=== PATIENT | male | born 1960 | race Hispanic/Latino ===

== ENCOUNTER 2024-02-14 12:46 | Inpatient (IN) | payer MEDICARE, SELFPAY ==
[~2024-02-14 12:46] MED LIST: Iopamidol-370 76% 500 ML MDV (1 ML CHARGE) ONE
[2024-02-14] MEDS ORDERED: Ondansetron PF 4 MG/2 ML Vial ONE (12:55)
[2024-02-14] MEDS ORDERED: fentaNYL 50 mcg/mL 1 mL Vial ONE (12:57)
[2024-02-14 13:10] LABS: #Basophils 0.03 10x3/uL (0.0-0.2); %Basophils 0.2 % (0.0-1.0); %Eosinophils 1.2 % (0.0-10.0); %Monocytes 8.5 % (0.0-10.0); %Neutrophils 84.5 % (42.0-75.0); Hematocrit 36.6 % (42.0-52.0); Mean Corpuscular HGB CONC 30.1 g/dL (32.0-36.0); Mean Corpuscular Hemoglobin 25.8 pg (27.0-31.0); Mean Corpuscular Volume 85.7 fL (78.0-98.0); Mean Platelet Volume 9.6 fL (7.4-10.4); Platelet Count 234 10x3/uL (130-400); RBC Distribution Width 17.9 % (11.5-14.5); Red Blood Cell (RBC) Count 4.27 mill/uL (4.70-6.10)
[2024-02-14] MEDS ORDERED: EPINEPHrine 1 MG/10 ML Abboject SYRINGE ONE (13:19)
[2024-02-14] MEDS ORDERED: Rocuronium Bromide 10 MG/ML (10ML VIAL) ONE (13:21)
[2024-02-14] MEDS ORDERED: Etomidate 40 MG (20 mL) VIAL ONE (13:21)
[2024-02-14] MEDS ORDERED: NOREPINEPHRINE 8 MG/250 ML-D5W 250 ML ONE (13:27)
[2024-02-14 13:29] LABS: INR-International Normal Ratio 1.2; Prothrombin Time 15.2 sec (12.0-14.7)
[2024-02-14 13:30] LABS: PTT 36.6 sec (22.9-36.1)
[2024-02-14 13:37] LABS: ALT (SGPT) 12 U/L (8-55); AST (SGOT) 23 U/L (5-34); Albumin 2.5 g/dL (3.4-4.8); Alkaline Phosphatase 93 U/L (40-110); Anion Gap 19 mmol/L (10-20); BUN (Urea Nitrogen) 60 mg/dL (8.4-25.7); Bilirubin, Total 0.6 mg/dL (0.2-1.2); Calc. Creatinine Clearance 0 mL/min (70-130); Calcium 7.9 mg/dL (7.8-10.44); Carbon Dioxide 19 mmol/L (23-31); Chloride 99 mmol/L (98-107); Estimated GFR 11; Globulin 3.7 g/dL (2.4-3.5); Glucose 135 mg/dL (80-115); Lipase 7 U/L (8-78); Potassium 3.7 mmol/L (3.5-5.1); Protein, Total 6.2 g/dL (5.8-8.1); Sodium 133 mmol/L (136-145)
[2024-02-14 13:39] LABS: Troponin I 5.268 ng/mL (< 0.028)
[2024-02-14] MEDS ORDERED: Fentanyl CADD 100 ML IV SCH (13:45)
[2024-02-14 14:01] LABS: Actual Bicarbonate (HCO3a) 19.9 mEq/L (22-28); Base Excess (BEa) -5.7 mEq/L (-2.0 to +3.0); CO2 Tension 39.2 mmHg (35.0-45.0); Calcium, Ionized (arterial) 0.98 mmol/L (1.12-1.30); Carboxyhemoglobin (COHb) 1.1 gm% (0.0-3.0); Hematocrit-ABG 38 % (42.0-52.0); Hemoglobin (Hb) 12.8 g/dL (14.0-18.0); O2 Tension (PaO2), arterial 336.4 mmHg (> 80.0); Potassium - ABG Lab 3.43 mmol/L (3.70-5.30); pH, Arterial 7.323 (7.35-7.45)
[2024-02-14 14:04] LABS: Puncture Site Right Radial artery
[2024-02-14 15:00] LABS: Bilirubin Negative (Negative); Blood, Urine Negative (Negative); CAUTI Indications for Culture Dysuria,urgency,freq; Glucose, Urine (Dipstick) Normal (Negative); Ketone, Urine Negative (Negative); Nitrite Negative (Negative); Protein, Urine (Dipstick) 30 mg/dL (Neg-Trace); Specific Gravity, Urine 1.015 (1.002-1.036); Squamous Epithelial 0-3 HPF (0-3)
[2024-02-14] MEDS ORDERED: cefTRIAXone (ROCEPHIN) 2 GM VIAL ONE (15:12)
[2024-02-14 15:13] LABS: Clarity Cloudy (Clear)
[2024-02-14] MEDS ORDERED: Sodium Chloride 0.9% 100 ML ONE ×2 (15:13→16:30)
[2024-02-14 15:14] LABS: Leukocyte Trace (Negative)
[2024-02-14 15:15] LABS: Urobilinogen Normal mg/dL (Less than 2)
[2024-02-14] MEDS ORDERED: Pantoprazole 80 MG, Admixture Fee 1 EACH in Sodium Chloride 0.9% 100 ML IVPB SCH (15:15)
[2024-02-14] MEDS ORDERED: Octreotide Acetate 1,250 MCG in Sodium Chloride 0.9% 250 ML 250 ML IVPB SCH (15:15)
[2024-02-14 15:25] LABS: Bacteria/HPF 1+ HPF (None Seen); Calcium Oxalate Crystals 1+ HPF (None Seen)
[2024-02-14 15:28] LABS: Urine Culture Reflex No No
[2024-02-14] MEDS ORDERED: Pantoprazole 40 MG VIAL ONE ×2 (16:17→16:20)
[2024-02-14] MEDS ORDERED: Octreotide Acetate 500 MCG/ML VIAL ONE (16:17)
[2024-02-14 16:25] LABS: Phosphorus 5.3 mg/dL (2.3-4.7)
[2024-02-14] MEDS ORDERED: Cefepime 2 GM VIAL ONE (16:30)
[2024-02-14] MEDS: Propofol 1,000 MG/100 ML VIAL IV PRN (18:00)
[2024-02-14] MEDS: Lorazepam 2 MG/ML VIAL SLOW IVP PRN (18:20)
[2024-02-14] MEDS ORDERED: Propofol BOLUS 1,000 MG/100 ML VIAL IV PRN (18:30)
[2024-02-14] MEDS ORDERED: Fentanyl BOLUS 250 ML IVPB PRN (18:30)
[2024-02-14] MEDS ORDERED: DISCONTINUE PREVIOUS NARCOTIC PAIN MEDICATIONS AND BENZODIAZEPINES FS SCH (18:30)
[2024-02-14] MEDS ORDERED: Morphine 2 MG/ML VIAL SLOW IVP PRN (18:30)
[2024-02-14] MEDS: Ipratropium/Albuterol 3 ML NEB NEB SCH (18:36)
[2024-02-14 18:39] LABS: Lactic Acid 2.55 mmol/L (0.5-2.2)
[2024-02-14 18:51] LABS: #Basophils 0.03 10x3/uL (0.0-0.2); %Basophils 0.2 % (0.0-1.0); %Eosinophils 1.2 % (0.0-10.0); %Lymphocytes 10.4 % (21.0-51.0); %Monocytes 10.2 % (0.0-10.0); %Neutrophils 77.5 % (42.0-75.0); Hematocrit 43.6 % (42.0-52.0); Hemoglobin 13.7 g/dL (14.0-18.0); Mean Corpuscular HGB CONC 31.4 g/dL (32.0-36.0); Mean Corpuscular Hemoglobin 25.8 pg (27.0-31.0); Mean Corpuscular Volume 82.3 fL (78.0-98.0); Platelet Count 122 10x3/uL (130-400); RBC Distribution Width 17.6 % (11.5-14.5)
[2024-02-14 19:02] LABS: Bacteria/HPF None Seen HPF (None Seen); Bilirubin Negative (Negative); Blood, Urine 1+ (Negative); Clarity Clear (Clear); Glucose, Urine (Dipstick) Normal (Negative); Ketone, Urine Negative (Negative); Leukocyte Negative Leu/uL (Negative); Nitrite Negative (Negative); Protein, Urine (Dipstick) 30 mg/dL (Neg-Trace); Specific Gravity, Urine 1.038 (1.002-1.036); Squamous Epithelial 0-3 HPF (0-3); Urobilinogen Normal mg/dL (Less than 2); pH, Urine 5.5 (5.0-9.0)
[2024-02-14 19:06] LABS: Amphetamine Not Detected (NotDetected); Barbiturates Screen Not Detected (NotDetected); Benzodiazepine Screen Not Detected (NotDetected); Cocaine Metabolite Screen Not Detected (NotDetected); Methadone Not Detected (NotDetected); Methamphetamine Not Detected (NotDetected); Opiate Screen Not Detected (NotDetected); Oxycodone Screen Detected (NotDetected); Phencyclidine (PCP) Not Detected (NotDetected); THC/Cannabinoid Screen Not Detected (NotDetected); Tricyclic Screen Detected (NotDetected)
[2024-02-14 19:08] LABS: ALT (SGPT) 19 U/L (8-55); AST (SGOT) 41 U/L (5-34); Albumin 2.8 g/dL (3.4-4.8); Alkaline Phosphatase 124 U/L (40-110); Anion Gap 21 mmol/L (10-20); BUN (Urea Nitrogen) 56 mg/dL (8.4-25.7); Bilirubin, Direct 1.1 mg/dL (0.1-0.3); Bilirubin, Total 1.8 mg/dL (0.2-1.2); Calc. Creatinine Clearance 22 mL/min (70-130); Calcium 7.9 mg/dL (7.8-10.44); Carbon Dioxide 15 mmol/L (23-31); Chloride 101 mmol/L (98-107); Estimated GFR 14; Glucose 163 mg/dL (80-115); Phosphorus 4.9 mg/dL (2.3-4.7); Potassium 3.6 mmol/L (3.5-5.1); Protein, Total 6.8 g/dL (5.8-8.1); Sodium 133 mmol/L (136-145)
[2024-02-14] MEDS: Propofol 1,000 MG/100 ML VIAL IV ONE (19:10)
[2024-02-14] MEDS: Lorazepam 2 MG/ML VIAL ONE (19:10)
[2024-02-14 19:13] VITALS: BMI 38.5
[2024-02-14 19:14] LABS: Critical Call Chem Troponin I RESULT DECREASING; Troponin I 4.684 ng/mL (< 0.028)
[2024-02-14 19:21] LABS: Creatinine, Urine 158.62 mg/dL (63-166)
[2024-02-14] MEDS: Vancomycin (BATCH) 2 GM in Premix 1 BAG IVPB SCH (19:45)
[2024-02-14] MEDS ORDERED: Vancomycin 1 GM in Premix 1 BAG IVPB SCH (21:00)
[2024-02-15] MEDS: Sodium Chloride 0.9% 1,000 ML IV SCH (01:11)
[2024-02-15 04:57] LABS: Vancomycin, Random 31.5 ug/mL (See Comment)
[2024-02-15] MEDS: Albumin 25% 25 GM (100 mL) BOT IVPB SCH (06:50)
[2024-02-15 08:13] LABS: #Basophils 0.04 10x3/uL (0.0-0.2); %Basophils 0.3 % (0.0-1.0); %Eosinophils 1.5 % (0.0-10.0); %Lymphocytes 4.4 % (21.0-51.0); %Monocytes 12.1 % (0.0-10.0); %Neutrophils 80.8 % (42.0-75.0); Hematocrit 42.2 % (42.0-52.0); Hemoglobin 13.2 g/dL (14.0-18.0); Mean Corpuscular HGB CONC 31.3 g/dL (32.0-36.0); Mean Corpuscular Hemoglobin 25.9 pg (27.0-31.0); Mean Corpuscular Volume 82.7 fL (78.0-98.0); Mean Platelet Volume 10.5 fL (7.4-10.4); Platelet Count 231 10x3/uL (130-400); RBC Distribution Width 18.2 % (11.5-14.5)
[2024-02-15 08:31] LABS: Anion Gap 19 mmol/L (10-20); BUN (Urea Nitrogen) 54 mg/dL (8.4-25.7); Calc. Creatinine Clearance 29 mL/min (70-130); Calcium 8.2 mg/dL (7.8-10.44); Carbon Dioxide 19 mmol/L (23-31); Chloride 102 mmol/L (98-107); Estimated GFR 20; Glucose 157 mg/dL (80-115); Potassium 3.6 mmol/L (3.5-5.1); Sodium 136 mmol/L (136-145)
[2024-02-15] MEDS ORDERED: Ondansetron ODT 4 MG TAB PO PRN (09:49)
[2024-02-15] MEDS ORDERED: Lorazepam 2 MG/ML VIAL IM PRN (09:49)
[2024-02-15] MEDS ORDERED: Lorazepam 1 MG TAB PO PRN (09:49)
[2024-02-15] MEDS ORDERED: Acetaminophen 325 MG TAB PO PRN (09:51)
[2024-02-15] MEDS ORDERED: Electrolyte Replacement Protocol 1 EACH FS SCH (10:00)
[2024-02-15 10:14] LABS: #Basophils 0.06 10x3/uL (0.0-0.2); %Basophils 0.4 % (0.0-1.0); %Eosinophils 1.9 % (0.0-10.0); %Lymphocytes 4.5 % (21.0-51.0); %Monocytes 14.1 % (0.0-10.0); %Neutrophils 78.5 % (42.0-75.0); Hematocrit 39.5 % (42.0-52.0); Hemoglobin 12.5 g/dL (14.0-18.0); Mean Corpuscular HGB CONC 31.6 g/dL (32.0-36.0); Mean Corpuscular Hemoglobin 25.9 pg (27.0-31.0); Mean Corpuscular Volume 81.8 fL (78.0-98.0); Mean Platelet Volume 9.4 fL (7.4-10.4); Platelet Count 199 10x3/uL (130-400); RBC Distribution Width 18.3 % (11.5-14.5); Red Blood Cell (RBC) Count 4.83 mill/uL (4.70-6.10)
[2024-02-15] MEDS: Thiamine HCl 200 MG/2 ML VIAL SLOW IVP SCH (10:22)
[2024-02-15] MEDS: Folic Acid 1 MG TAB PO SCH (10:23)
[2024-02-15] MEDS: Multivit, Therapeutic 1 TAB PO SCH (10:23)
[2024-02-15] MEDS: Lorazepam 1 MG TAB PO SCH (10:23)
[2024-02-15 10:45] LABS: ALT (SGPT) 15 U/L (8-55); AST (SGOT) 26 U/L (5-34); Albumin 2.8 g/dL (3.4-4.8); Alkaline Phosphatase 107 U/L (40-110); Anion Gap 15 mmol/L (10-20); BUN (Urea Nitrogen) 49 mg/dL (8.4-25.7); Bilirubin, Direct 0.7 mg/dL (0.1-0.3); Calc. Creatinine Clearance 33 mL/min (70-130); Calcium 8.3 mg/dL (7.8-10.44); Carbon Dioxide 20 mmol/L (23-31); Chloride 106 mmol/L (98-107); Estimated GFR 23; Globulin 3.4 g/dL (2.4-3.5); Glucose 153 mg/dL (80-115); Phosphorus 3.9 mg/dL (2.3-4.7); Potassium 3.8 mmol/L (3.5-5.1); Protein, Total 6.2 g/dL (5.8-8.1); Sodium 137 mmol/L (136-145)
[2024-02-15] MEDS ORDERED: Vancomycin Dose by Levels Sliding Scale (Wt 71-99) FS SCH (11:00)
[2024-02-15] MEDS: Cefepime 1 GM in Sodium Chloride 0.9% 100 ML IVPB SCH (11:35)
[2024-02-15 14:43] LABS: Phosphorus 3.7 mg/dL (2.3-4.7)
[2024-02-15] MEDS ORDERED: Cefepime 2 GM in Sodium Chloride 0.9% 100 ML IVPB SCH (16:00)
[2024-02-15] MEDS ORDERED: Vancomycin HCl 500 MG in Sodium Chloride 0.9% 100 ML IVPB SCH (18:00)
[2024-02-15 18:12] LABS: Vancomycin, Trough 16.7 ug/mL
[2024-02-15] MEDS: Vancomycin HCl 500 MG in Sodium Chloride 0.9% 100 ML IV SCH (19:40)
[2024-02-15] MEDS: Magnesium 2 GM/50 ML(in water) 2 GM in Premix 1 BAG IVPB SCH (23:27)
[2024-02-16] MEDS: Vecuronium 10 MG VIAL ONE (00:49)
[2024-02-16] MEDS: Vecuronium 10 MG VIAL IVP SCH (00:49)
[2024-02-16 03:48] LABS: Vancomycin, Random 21.7 ug/mL (See Comment)
[2024-02-16 03:56] LABS: Troponin I 2.977 ng/mL (< 0.028)
[2024-02-16 08:35] LABS: #Basophils 0.09 10x3/uL (0.0-0.2); %Basophils 0.4 % (0.0-1.0); %Eosinophils 2.9 % (0.0-10.0); %Lymphocytes 5.6 % (21.0-51.0); %Monocytes 15.4 % (0.0-10.0); %Neutrophils 75.1 % (42.0-75.0); Hematocrit 43.5 % (42.0-52.0); Hemoglobin 12.7 g/dL (14.0-18.0); Mean Corpuscular HGB CONC 29.2 g/dL (32.0-36.0); Mean Corpuscular Hemoglobin 26.1 pg (27.0-31.0); Mean Corpuscular Volume 89.5 fL (78.0-98.0); Mean Platelet Volume 9.5 fL (7.4-10.4); Platelet Count 199 10x3/uL (130-400); RBC Distribution Width 19.1 % (11.5-14.5); Red Blood Cell (RBC) Count 4.86 mill/uL (4.70-6.10)
[2024-02-16 08:56] LABS: Anion Gap 14 mmol/L (10-20); BUN (Urea Nitrogen) 45 mg/dL (8.4-25.7); Calc. Creatinine Clearance 43 mL/min (70-130); Carbon Dioxide 22 mmol/L (23-31); Chloride 106 mmol/L (98-107); Estimated GFR 30; Glucose 109 mg/dL (80-115); Potassium 3.7 mmol/L (3.5-5.1); Sodium 138 mmol/L (136-145)
[2024-02-16] MEDS: Metoprolol Tartrate 25 MG TAB PER TUBE SCH (09:36)
[2024-02-16] MEDS: Pantoprazole 40 MG VIAL IVP SCH (09:36)
[2024-02-16] MEDS: Multivit, Therapeutic 1 TAB PO SCH (09:37)
[2024-02-16] MEDS: Folic Acid 1 MG TAB PO SCH (09:37)
[2024-02-16] MEDS ORDERED: Lorazepam 1 MG TAB PO PRN (09:50)
[2024-02-16] MEDS: NOREPINEPHRINE 8 MG/250 ML-D5W 250 ML IVPB SCH (14:11)
[2024-02-16] MEDS: Fentanyl CADD 100 ML IV SCH (14:18)
[2024-02-16] MEDS: Lactated Ringer's 500 ML IV SCH (15:33)
[2024-02-16] MEDS: methylPREDNISolone Sod Succ 40 MG VIAL IVP SCH (19:52)
[2024-02-17] MEDS: Dexmedetomidine In 0.9 % NaCl 100 ML IVPB SCH (01:51)
[2024-02-17 05:40] LABS: Vancomycin, Random 13.9 ug/mL (See Comment)
[2024-02-17 08:02] LABS: Actual Bicarbonate (HCO3a) 17.4 mEq/L (22-28); Base Excess (BEa) -11.4 mEq/L (-2.0 to +3.0); CO2 Tension 50.5 mmHg (35.0-45.0); Calcium, Ionized (arterial) 1.27 mmol/L (1.12-1.30); Hematocrit-ABG 41 % (42.0-52.0); Hemoglobin (Hb) 13.9 g/dL (14.0-18.0); O2 Tension (PaO2), arterial 74.4 mmHg (> 80.0); Potassium - ABG Lab 4.94 mmol/L (3.70-5.30)
[2024-02-17 08:10] LABS: Puncture Site Left Brachial artery; pH, Arterial 7.155 (7.35-7.45)
[2024-02-17 08:11] LABS: ALV-art Gradient 218.975 mmHg (0-20)
[2024-02-17 08:46] LABS: Anion Gap 18 mmol/L (10-20); BUN (Urea Nitrogen) 59 mg/dL (8.4-25.7); Calc. Creatinine Clearance 35 mL/min (70-130); Carbon Dioxide 17 mmol/L (23-31); Chloride 109 mmol/L (98-107); Estimated GFR 23; Glucose 162 mg/dL (80-115); Potassium 5.3 mmol/L (3.5-5.1); Sodium 139 mmol/L (136-145)
[2024-02-17 08:53] LABS: #Basophils 0.05 10x3/uL (0.0-0.2); #Eosinophils Less than 0.03 10x3/uL (0.0-0.7); %Basophils 0.3 % (0.0-1.0); %Eosinophils 0.1 % (0.0-10.0); %Lymphocytes 5.7 % (21.0-51.0); %Monocytes 7.5 % (0.0-10.0); %Neutrophils 85.5 % (42.0-75.0); Hematocrit 45.7 % (42.0-52.0); Hemoglobin 13.6 g/dL (14.0-18.0); Mean Corpuscular HGB CONC 29.8 g/dL (32.0-36.0); Mean Corpuscular Hemoglobin 25.9 pg (27.0-31.0); Platelet Count 220 10x3/uL (130-400); RBC Distribution Width 19.5 % (11.5-14.5); Red Blood Cell (RBC) Count 5.25 mill/uL (4.70-6.10)
[2024-02-17] MEDS ORDERED: Sodium Bicarbonate 150 MEQ in Dextrose 5% in Water 1,000 ML IV SCH (09:15)
[2024-02-17] MEDS: Vancomycin HCl 750 MG in Sodium Chloride 0.9% 250 ML 250 ML IVPB SCH (09:48)
[2024-02-17] MEDS ORDERED: Lorazepam 1 MG TAB PO PRN (09:50)
[2024-02-17] MEDS: Lorazepam 0.5 MG TAB PO SCH (10:19)
[2024-02-17] MEDS: Sodium Bicarbonate 150 MEQ in Dextrose 5% in Water 1,000 ML IV SCH (10:53)
[2024-02-17] MEDS: LOKELMA 10 GM PACKET PO SCH (10:53)
[2024-02-17] MEDS ORDERED: Vancomycin HCl 750 MG in Sodium Chloride 0.9% 250 ML 250 ML IVPB SCH (11:00)
[2024-02-17 18:53] LABS: Anion Gap 20 mmol/L (10-20); BUN (Urea Nitrogen) 67 mg/dL (8.4-25.7); Calc. Creatinine Clearance 34 mL/min (70-130); Calcium 8.6 mg/dL (7.8-10.44); Carbon Dioxide 15 mmol/L (23-31); Chloride 110 mmol/L (98-107); Estimated GFR 22; Glucose 168 mg/dL (80-115); Sodium 140 mmol/L (136-145)
[2024-02-18] MEDS: Thiamine 100 MG TAB PO SCH (07:43)
[2024-02-18 08:32] LABS: #Basophils Less than 0.03 10x3/uL (0.0-0.2); #Eosinophils Less than 0.03 10x3/uL (0.0-0.7); %Basophils 0.2 % (0.0-1.0); %Lymphocytes 6.9 % (21.0-51.0); %Monocytes 11.8 % (0.0-10.0); %Neutrophils 78.9 % (42.0-75.0); Hematocrit 43.7 % (42.0-52.0); Hemoglobin 13.4 g/dL (14.0-18.0); Mean Corpuscular HGB CONC 30.7 g/dL (32.0-36.0); Mean Corpuscular Hemoglobin 25.9 pg (27.0-31.0); Mean Corpuscular Volume 84.4 fL (78.0-98.0); Mean Platelet Volume 9.6 fL (7.4-10.4); Platelet Count 234 10x3/uL (130-400); RBC Distribution Width 18.9 % (11.5-14.5); Red Blood Cell (RBC) Count 5.18 mill/uL (4.70-6.10)
[2024-02-18 09:06] LABS: Anion Gap 18 mmol/L (10-20); BUN (Urea Nitrogen) 81 mg/dL (8.4-25.7); Calc. Creatinine Clearance 33 mL/min (70-130); Calcium 8.5 mg/dL (7.8-10.44); Carbon Dioxide 19 mmol/L (23-31); Chloride 107 mmol/L (98-107); Estimated GFR 21; Glucose 152 mg/dL (80-115); Potassium 4.5 mmol/L (3.5-5.1); Sodium 139 mmol/L (136-145)
[2024-02-18] MEDS: Haloperidol Lactate 5 MG/ML VIAL IM SCH (09:18)
[2024-02-18] MEDS ORDERED: Lorazepam 0.5 MG TAB PO PRN (09:50)
[2024-02-18] MEDS: Vecuronium 10 MG VIAL IV PRN (15:44)
[2024-02-18 16:47] LABS: ALV-art Gradient 236.025 mmHg (0-20); Actual Bicarbonate (HCO3a) 18.9 mEq/L (22-28); Base Excess (BEa) -5.8 mEq/L (-2.0 to +3.0); CO2 Tension 34.7 mmHg (35.0-45.0); Calcium, Ionized (arterial) 1.15 mmol/L (1.12-1.30); Carboxyhemoglobin (COHb) 0.5 gm% (0.0-3.0); Hematocrit-ABG 38 % (42.0-52.0); Hemoglobin (Hb) 12.9 g/dL (14.0-18.0); O2 Tension (PaO2), arterial 77.1 mmHg (> 80.0); Potassium - ABG Lab 4.13 mmol/L (3.70-5.30); Puncture Site Right Radial artery; pH, Arterial 7.354 (7.35-7.45)
[2024-02-19 07:57] LABS: Actual Bicarbonate (HCO3a) 20.6 mEq/L (22-28); Base Excess (BEa) -3.1 mEq/L (-2.0 to +3.0); CO2 Tension 32.7 mmHg (35.0-45.0); Calcium, Ionized (arterial) 1.17 mmol/L (1.12-1.30); Hematocrit-ABG 38 % (42.0-52.0); Hemoglobin (Hb) 12.9 g/dL (14.0-18.0); O2 Tension (PaO2), arterial 66.9 mmHg (> 80.0); Potassium - ABG Lab 3.41 mmol/L (3.70-5.30); pH, Arterial 7.417 (7.35-7.45)
[2024-02-19 08:00] LABS: ALV-art Gradient 248.725 mmHg (0-20); Puncture Site Right Radial artery
[2024-02-19 09:15] LABS: ALT (SGPT) 14 U/L (8-55); AST (SGOT) 15 U/L (5-34); Albumin 2.3 g/dL (3.4-4.8); Alkaline Phosphatase 105 U/L (40-110); Anion Gap 17 mmol/L (10-20); BUN (Urea Nitrogen) 97 mg/dL (8.4-25.7); Bilirubin, Total 0.6 mg/dL (0.2-1.2); Calc. Creatinine Clearance 47 mL/min (70-130); Calcium 7.9 mg/dL (7.8-10.44); Carbon Dioxide 20 mmol/L (23-31); Chloride 107 mmol/L (98-107); Estimated GFR 32; Globulin 3.5 g/dL (2.4-3.5); Glucose 175 mg/dL (80-115); Potassium 3.5 mmol/L (3.5-5.1); Protein, Total 5.8 g/dL (5.8-8.1); Sodium 140 mmol/L (136-145)
[2024-02-19 10:38] LABS: #Basophils 0.03 10x3/uL (0.0-0.2); #Eosinophils Less than 0.03 10x3/uL (0.0-0.7); %Basophils 0.4 % (0.0-1.0); %Lymphocytes 7.7 % (21.0-51.0); %Monocytes 13.3 % (0.0-10.0); %Neutrophils 76.9 % (42.0-75.0); Hematocrit 37.3 % (42.0-52.0); Mean Corpuscular HGB CONC 32.2 g/dL (32.0-36.0); Mean Corpuscular Hemoglobin 26.6 pg (27.0-31.0); Mean Corpuscular Volume 82.7 fL (78.0-98.0); Mean Platelet Volume 9.8 fL (7.4-10.4); Platelet Count 127 10x3/uL (130-400); RBC Distribution Width 18.6 % (11.5-14.5); Red Blood Cell (RBC) Count 4.51 mill/uL (4.70-6.10)
[2024-02-19 18:10] LABS: Anion Gap 14 mmol/L (10-20); BUN (Urea Nitrogen) 95 mg/dL (8.4-25.7); Calc. Creatinine Clearance 55 mL/min (70-130); Calcium 8.2 mg/dL (7.8-10.44); Carbon Dioxide 21 mmol/L (23-31); Chloride 107 mmol/L (98-107); Estimated GFR 39; Glucose 166 mg/dL (80-115); Potassium 3.4 mmol/L (3.5-5.1); Sodium 139 mmol/L (136-145)
[2024-02-19] MEDS: Cefepime 2 GM in Sodium Chloride 0.9% 100 ML IVPB SCH (23:13)
[2024-02-20 10:55] LABS: Actual Bicarbonate (HCO3a) 21.4 mEq/L (22-28); Base Excess (BEa) -1.6 mEq/L (-2.0 to +3.0); CO2 Tension 31.1 mmHg (35.0-45.0); Calcium, Ionized (arterial) 1.17 mmol/L (1.12-1.30); Carboxyhemoglobin (COHb) 0.7 gm% (0.0-3.0); Hematocrit-ABG 38 % (42.0-52.0); Hemoglobin (Hb) 12.8 g/dL (14.0-18.0); O2 Tension (PaO2), arterial 63.4 mmHg (> 80.0); Potassium - ABG Lab 3.46 mmol/L (3.70-5.30); pH, Arterial 7.455 (7.35-7.45)
[2024-02-20] MEDS: Haloperidol Lactate 5 MG/ML VIAL IM SCH (11:00)
[2024-02-20] MEDS: Scopolamine 1 mg/72 hour Patch TD SCH (11:03)
[2024-02-20 11:04] LABS: ALV-art Gradient 182.925 mmHg (0-20); Puncture Site Right Radial artery
[2024-02-20 11:11] LABS: #Basophils Less than 0.03 10x3/uL (0.0-0.2); #Eosinophils Less than 0.03 10x3/uL (0.0-0.7); %Basophils 0.2 % (0.0-1.0); %Eosinophils 0.1 % (0.0-10.0); %Lymphocytes 6.1 % (21.0-51.0); %Neutrophils 79.7 % (42.0-75.0); Hematocrit 37.8 % (42.0-52.0); Hemoglobin 12.4 g/dL (14.0-18.0); Mean Corpuscular HGB CONC 32.8 g/dL (32.0-36.0); Mean Corpuscular Hemoglobin 26.1 pg (27.0-31.0); Mean Corpuscular Volume 79.6 fL (78.0-98.0); Mean Platelet Volume 9.6 fL (7.4-10.4); Platelet Count 238 10x3/uL (130-400); RBC Distribution Width 18.6 % (11.5-14.5); Red Blood Cell (RBC) Count 4.75 mill/uL (4.70-6.10)
[2024-02-20 11:33] LABS: Anion Gap 15 mmol/L (10-20); BUN (Urea Nitrogen) 90 mg/dL (8.4-25.7); Calc. Creatinine Clearance 66 mL/min (70-130); Calcium 8.3 mg/dL (7.8-10.44); Carbon Dioxide 21 mmol/L (23-31); Chloride 111 mmol/L (98-107); Estimated GFR 48; Glucose 146 mg/dL (80-115); Potassium 3.5 mmol/L (3.5-5.1); Sodium 143 mmol/L (136-145)
[2024-02-20] MEDS: Furosemide 40 MG (4 mL) VIAL SLOW IVP SCH (14:26)
[2024-02-20] MEDS: Sterile Water 10 ML ONE (14:58)
[2024-02-21 04:07] LABS: #Basophils Less than 0.03 10x3/uL (0.0-0.2); #Eosinophils Less than 0.03 10x3/uL (0.0-0.7); %Basophils 0.2 % (0.0-1.0); %Lymphocytes 5.3 % (21.0-51.0); %Neutrophils 82.1 % (42.0-75.0); Hematocrit 37.2 % (42.0-52.0); Mean Corpuscular HGB CONC 32.3 g/dL (32.0-36.0); Mean Corpuscular Hemoglobin 26.7 pg (27.0-31.0); Mean Corpuscular Volume 82.7 fL (78.0-98.0); Platelet Count 246 10x3/uL (130-400); RBC Distribution Width 18.7 % (11.5-14.5)
[2024-02-21 04:22] LABS: Anion Gap 14 mmol/L (10-20); BUN (Urea Nitrogen) 81 mg/dL (8.4-25.7); Calc. Creatinine Clearance 80 mL/min (70-130); Calcium 8.4 mg/dL (7.8-10.44); Carbon Dioxide 23 mmol/L (23-31); Chloride 109 mmol/L (98-107); Estimated GFR 60; Glucose 139 mg/dL (80-115); Potassium 3.5 mmol/L (3.5-5.1); Sodium 142 mmol/L (136-145)
[2024-02-21 06:45] LABS: Actual Bicarbonate (HCO3a) 23.3 mEq/L (22-28); CO2 Tension 29.9 mmHg (35.0-45.0); Calcium, Ionized (arterial) 1.21 mmol/L (1.12-1.30); Carboxyhemoglobin (COHb) 1.3 gm% (0.0-3.0); Hematocrit-ABG 37 % (42.0-52.0); Hemoglobin (Hb) 12.6 g/dL (14.0-18.0); O2 Tension (PaO2), arterial 60.7 mmHg (> 80.0); Potassium - ABG Lab 3.43 mmol/L (3.70-5.30); pH, Arterial 7.509 (7.35-7.45)
[2024-02-21 06:53] LABS: ALV-art Gradient 187.125 mmHg (0-20); Puncture Site Right Radial artery
[2024-02-21] MEDS: Furosemide 40 MG (4 mL) VIAL SLOW IVP SCH (10:55)
[2024-02-21] MEDS: Potassium Chloride 20 MEQ in Premix 1 BAG IVPB SCH (11:02)
[2024-02-21] MEDS: methylPREDNISolone Sod Succ 40 MG VIAL IVP SCH ×2 (11:19→20:01)
[2024-02-21] MEDS: Cefepime 2 GM in Sodium Chloride 0.9% 100 ML IVPB SCH (23:37)
[2024-02-22 04:08] LABS: #Basophils 0.03 10x3/uL (0.0-0.2); #Eosinophils Less than 0.03 10x3/uL (0.0-0.7); %Basophils 0.3 % (0.0-1.0); %Eosinophils 0.1 % (0.0-10.0); %Lymphocytes 7.6 % (21.0-51.0); %Monocytes 7.3 % (0.0-10.0); %Neutrophils 80.3 % (42.0-75.0); Hematocrit 37.2 % (42.0-52.0); Hemoglobin 11.9 g/dL (14.0-18.0); Mean Corpuscular Hemoglobin 27.2 pg (27.0-31.0); Mean Corpuscular Volume 84.9 fL (78.0-98.0); Mean Platelet Volume 9.5 fL (7.4-10.4); Platelet Count 268 10x3/uL (130-400); RBC Distribution Width 19.3 % (11.5-14.5); Red Blood Cell (RBC) Count 4.38 mill/uL (4.70-6.10)
[2024-02-22 04:24] LABS: Anion Gap 11 mmol/L (10-20); BUN (Urea Nitrogen) 76 mg/dL (8.4-25.7); Calc. Creatinine Clearance 96 mL/min (70-130); Calcium 8.4 mg/dL (7.8-10.44); Carbon Dioxide 25 mmol/L (23-31); Chloride 112 mmol/L (98-107); Estimated GFR 74; Glucose 134 mg/dL (80-115); Potassium 4.2 mmol/L (3.5-5.1); Sodium 144 mmol/L (136-145)
[2024-02-22 06:55] LABS: Actual Bicarbonate (HCO3a) 24.9 mEq/L (22-28); Base Excess (BEa) 0.3 mEq/L (-2.0 to +3.0); CO2 Tension 40.2 mmHg (35.0-45.0); Calcium, Ionized (arterial) 1.28 mmol/L (1.12-1.30); Carboxyhemoglobin (COHb) 0.1 gm% (0.0-3.0); Hematocrit-ABG 53 % (42.0-52.0); Hemoglobin (Hb) 18.1 g/dL (14.0-18.0); O2 Tension (PaO2), arterial 77.9 mmHg (> 80.0); pH, Arterial 7.409 (7.35-7.45)
[2024-02-22 07:04] LABS: Puncture Site Right Radial artery
[2024-02-22] MEDS: Empagliflozin 10 MG TAB PER TUBE SCH (10:39)
[2024-02-22] MEDS: Polyethylene Glycol 3350 17 GM Packet PER TUBE SCH (10:40)
[2024-02-22] MEDS: Lorazepam 1 MG TAB PER TUBE SCH (10:40)
[2024-02-22] MEDS: Cholecalciferol 1,000 UNITS (25 MCG) TAB PER TUBE SCH (20:45)
[2024-02-23 04:24] LABS: #Basophils 0.08 10x3/uL (0.0-0.2); %Basophils 0.6 % (0.0-1.0); %Eosinophils 0.7 % (0.0-10.0); %Lymphocytes 9.5 % (21.0-51.0); %Monocytes 7.1 % (0.0-10.0); %Neutrophils 78.3 % (42.0-75.0); Hematocrit 42.2 % (42.0-52.0); Hemoglobin 12.4 g/dL (14.0-18.0); Mean Corpuscular HGB CONC 29.4 g/dL (32.0-36.0); Mean Corpuscular Volume 88.5 fL (78.0-98.0); Mean Platelet Volume 9.4 fL (7.4-10.4); Platelet Count 270 10x3/uL (130-400); RBC Distribution Width 19.6 % (11.5-14.5); Red Blood Cell (RBC) Count 4.77 mill/uL (4.70-6.10)
[2024-02-23 04:42] LABS: Anion Gap 14 mmol/L (10-20); BUN (Urea Nitrogen) 63 mg/dL (8.4-25.7); Calc. Creatinine Clearance 112 mL/min (70-130); Calcium 8.8 mg/dL (7.8-10.44); Carbon Dioxide 22 mmol/L (23-31); Chloride 114 mmol/L (98-107); Estimated GFR 96; Glucose 126 mg/dL (80-115); Potassium 4.2 mmol/L (3.5-5.1); Sodium 146 mmol/L (136-145)
[2024-02-23 07:31] LABS: Actual Bicarbonate (HCO3a) 30.3 mEq/L (22-28); Base Excess (BEa) 5.2 mEq/L (-2.0 to +3.0); CO2 Tension 45.5 mmHg (35.0-45.0); Calcium, Ionized (arterial) 1.26 mmol/L (1.12-1.30); Carboxyhemoglobin (COHb) 0.8 gm% (0.0-3.0); Hematocrit-ABG 46 % (42.0-52.0); Hemoglobin (Hb) 15.6 g/dL (14.0-18.0); O2 Tension (PaO2), arterial 62.3 mmHg (> 80.0); Potassium - ABG Lab 4.28 mmol/L (3.70-5.30); pH, Arterial 7.441 (7.35-7.45)
[2024-02-23 07:40] LABS: ALV-art Gradient 166.025 mmHg (0-20); Puncture Site Right Radial artery
[2024-02-23] MEDS ORDERED: Aspirin Chewable 81 MG TAB PER TUBE SCH (09:00)
[2024-02-23 13:17] LABS: ALT (SGPT) 37 U/L (8-55); AST (SGOT) 37 U/L (5-34); Albumin 2.6 g/dL (3.4-4.8); Alkaline Phosphatase 104 U/L (40-110); Bilirubin, Direct 0.2 mg/dL (0.1-0.3); Bilirubin, Total 0.6 mg/dL (0.2-1.2); Protein, Total 6.5 g/dL (5.8-8.1)
[2024-02-23 13:21] LABS: INR-International Normal Ratio 1.1; PTT 26.8 sec (22.9-36.1); Prothrombin Time 14.4 sec (12.0-14.7)
[2024-02-23] MEDS: Nystatin Powder 15 GM BOT TOP PRN (22:27)
[2024-02-24] MEDS: hydrALAZINE 20 MG/ML VIAL SLOW IVP PRN (01:53)
[2024-02-24] MEDS: DOBUTamine 500 mg/250 ml 250 ML ONE (02:46)
[2024-02-24 06:19] LABS: #Basophils 0.03 10x3/uL (0.0-0.2); %Basophils 0.2 % (0.0-1.0); %Eosinophils 1.5 % (0.0-10.0); %Lymphocytes 8.2 % (21.0-51.0); %Monocytes 6.6 % (0.0-10.0); %Neutrophils 81.5 % (42.0-75.0); Hematocrit 40.6 % (42.0-52.0); Hemoglobin 12.3 g/dL (14.0-18.0); Mean Corpuscular HGB CONC 30.3 g/dL (32.0-36.0); Mean Corpuscular Hemoglobin 26.1 pg (27.0-31.0); Mean Corpuscular Volume 86.2 fL (78.0-98.0); Mean Platelet Volume 10.1 fL (7.4-10.4); Platelet Count 324 10x3/uL (130-400); RBC Distribution Width 19.3 % (11.5-14.5); Red Blood Cell (RBC) Count 4.71 mill/uL (4.70-6.10)
[2024-02-24 06:40] LABS: Anion Gap 15 mmol/L (10-20); BUN (Urea Nitrogen) 49 mg/dL (8.4-25.7); Calc. Creatinine Clearance 117 mL/min (70-130); Calcium 8.8 mg/dL (7.8-10.44); Carbon Dioxide 24 mmol/L (23-31); Chloride 112 mmol/L (98-107); Estimated GFR 98; Glucose 102 mg/dL (80-115); Potassium 4.6 mmol/L (3.5-5.1); Sodium 146 mmol/L (136-145)
[2024-02-24] MEDS ORDERED: Thiamine 100 MG TAB PO SCH (08:21)
[2024-02-24] MEDS: Enoxaparin 40 MG (0.4 mL) SYRINGE SC SCH (10:02)
[2024-02-24] MEDS: methylPREDNISolone Sod Succ 40 MG VIAL IVP SCH (10:12)
[2024-02-24] MEDS: Dextrose 5 %-0.45 % NaCl 1,000 ML IV SCH (10:27)
[2024-02-24] MEDS ORDERED: Lidocaine 2% PF 5 ML VIAL ONE (14:35)
[2024-02-24] MEDS ORDERED: EPINEPHrine 1 MG/ML VIAL ONE (14:36)
[2024-02-24] MEDS ORDERED: Bupivacaine PF 0.5% 30 ML VIAL ONE (14:36)
[2024-02-24] MEDS ORDERED: Lidocaine 1% PF 5 ML VIAL ONE (14:36)
[2024-02-24] MEDS ORDERED: PROPOFOL 20 ML ONE (15:24)
[2024-02-24] MEDS ORDERED: ePHEDrine Sulfate 50 MG/10 ML VIAL ONE (15:24)
[2024-02-24] MEDS ORDERED: Rocuronium Bromide 10 MG/ML (10ML VIAL) ONE (15:24)
[2024-02-24] MEDS ORDERED: Midazolam HCl 2 mg/2 ml Vial ONE (15:24)
[2024-02-24] MEDS ORDERED: fentaNYL PF 100 MCG/2 ML SYRINGE ONE (16:09)
[2024-02-25 04:29] LABS: #Basophils Less than 0.03 10x3/uL (0.0-0.2); %Basophils 0.2 % (0.0-1.0); %Eosinophils 2.2 % (0.0-10.0); %Lymphocytes 7.9 % (21.0-51.0); %Monocytes 6.7 % (0.0-10.0); %Neutrophils 81.8 % (42.0-75.0); Hematocrit 38.4 % (42.0-52.0); Hemoglobin 11.7 g/dL (14.0-18.0); Mean Corpuscular HGB CONC 30.5 g/dL (32.0-36.0); Mean Corpuscular Hemoglobin 25.9 pg (27.0-31.0); Mean Corpuscular Volume 85.1 fL (78.0-98.0); Mean Platelet Volume 9.6 fL (7.4-10.4); Platelet Count 284 10x3/uL (130-400); RBC Distribution Width 19.3 % (11.5-14.5); Red Blood Cell (RBC) Count 4.51 mill/uL (4.70-6.10)
[2024-02-25 04:55] LABS: Anion Gap 10 mmol/L (10-20); BUN (Urea Nitrogen) 33 mg/dL (8.4-25.7); Calc. Creatinine Clearance 126 mL/min (70-130); Calcium 8.7 mg/dL (7.8-10.44); Carbon Dioxide 26 mmol/L (23-31); Chloride 112 mmol/L (98-107); Estimated GFR 101; Glucose 125 mg/dL (80-115); Potassium 3.3 mmol/L (3.5-5.1); Sodium 145 mmol/L (136-145)
[2024-02-25] MEDS ORDERED: Labetalol HCl 100 MG/20 ML VIAL SLOW IVP PRN (08:30)
[2024-02-25] MEDS: Potassium Chloride 40 MEQ in Premix 1 BAG IVPB SCH (09:32)
[2024-02-25] MEDS: Dexmedetomidine In 0.9 % NaCl 100 ML IVPB SCH (09:40)
[2024-02-25 13:25] VITALS: BMI 38.8
[2024-02-26 04:41] LABS: #Basophils Less than 0.03 10x3/uL (0.0-0.2); %Basophils 0.2 % (0.0-1.0); %Eosinophils 1.5 % (0.0-10.0); %Lymphocytes 6.7 % (21.0-51.0); %Monocytes 8.3 % (0.0-10.0); %Neutrophils 82.5 % (42.0-75.0); Hematocrit 36.9 % (42.0-52.0); Hemoglobin 10.9 g/dL (14.0-18.0); Mean Corpuscular HGB CONC 29.5 g/dL (32.0-36.0); Mean Corpuscular Hemoglobin 26.1 pg (27.0-31.0); Mean Corpuscular Volume 88.5 fL (78.0-98.0); Mean Platelet Volume 9.7 fL (7.4-10.4); Platelet Count 248 10x3/uL (130-400); RBC Distribution Width 18.8 % (11.5-14.5); Red Blood Cell (RBC) Count 4.17 mill/uL (4.70-6.10)
[2024-02-26 04:58] LABS: Anion Gap 13 mmol/L (10-20); BUN (Urea Nitrogen) 28 mg/dL (8.4-25.7); Calc. Creatinine Clearance 125 mL/min (70-130); Carbon Dioxide 25 mmol/L (23-31); Chloride 117 mmol/L (98-107); Estimated GFR 101; Glucose 135 mg/dL (80-115); Potassium 3.5 mmol/L (3.5-5.1); Sodium 151 mmol/L (136-145)
[2024-02-26] MEDS: Furosemide 40 MG (4 mL) VIAL SLOW IVP SCH (07:54)
[2024-02-26] MEDS: fentaNYL 75 mcg/hour Patch TD SCH (09:12)
[2024-02-26] MEDS: Senokot S 8.6-50 MG TAB PO SCH (09:13)
[2024-02-26] MEDS: Metoclopramide HCl 10 MG (2 mL) VIAL IVP PRN (09:14)
[2024-02-26 10:15] VITALS: BP 130/65
[2024-02-26] MEDS: Lorazepam 1 MG TAB PO PRN (12:46)
[2024-02-26] MEDS: Morphine 2 MG/ML VIAL SLOW IVP SCH (18:19)
[2024-02-26 20:14] VITALS: TEMP 98.8
== END 2024-02-26 21:00 | DRG 4 ==
LOC: ERS 12:46 → CCU 15:11
PROVIDERS: ADMIT Internal Medicine; ATTEND Internal Medicine
PROC: 5A1955Z Respiratory Ventilation, Greater than 96 Consecutive Hours (ICD-10-PCS; 2024-02-14)
PROC: 30233K1 Transfusion of Nonautologous Frozen Plasma into Peripheral Vein, Percutaneous Approach (ICD-10-PCS; 2024-02-14)
PROC: 30233N1 Transfusion of Nonautologous Red Blood Cells into Peripheral Vein, Percutaneous Approach (ICD-10-PCS; 2024-02-14)
PROC: 4A133R1 Monitoring of Arterial Saturation, Peripheral, Percutaneous Approach (ICD-10-PCS; 2024-02-14)
PROC: 3E033XZ Introduction of Vasopressor into Peripheral Vein, Percutaneous Approach (ICD-10-PCS; 2024-02-14)
PROC: 3E03329 Introduction of Other Anti-infective into Peripheral Vein, Percutaneous Approach (ICD-10-PCS; 2024-02-14)
PROC: 30233J1 Transfusion of Nonautologous Serum Albumin into Peripheral Vein, Percutaneous Approach (ICD-10-PCS; 2024-02-14)
PROC: 0BH17EZ Insertion of Endotracheal Airway into Trachea, Via Natural or Artificial Opening (ICD-10-PCS; 2024-02-14)
PROC: 4A10X4Z Monitoring of Central Nervous Electrical Activity, External Approach (ICD-10-PCS; principal; 2024-02-24)
PROC: 0B110F4 Bypass Trachea to Cutaneous with Tracheostomy Device, Open Approach (ICD-10-PCS; 2024-02-24)
PROC: 02HV33Z Insertion of Infusion Device into Superior Vena Cava, Percutaneous Approach (ICD-10-PCS; 2024-02-24)
PROC: 0DH63UZ Insertion of Feeding Device into Stomach, Percutaneous Approach (ICD-10-PCS; 2024-02-24)
DX: A41.9 Sepsis, unspecified organism (principal); G93.41 Metabolic encephalopathy; I21.A1 Myocardial infarction type 2; J18.9 Pneumonia, unspecified organism; J96.01 Acute respiratory failure with hypoxia; R65.21 Severe sepsis with septic shock; J69.0 Pneumonitis due to inhalation of food and vomit; N17.9 Acute kidney failure, unspecified; N25.81 Secondary hyperparathyroidism of renal origin; E87.20 Acidosis, unspecified; N18.4 Chronic kidney disease, stage 4 (severe); F10.139 Alcohol abuse with withdrawal, unspecified; K92.2 Gastrointestinal hemorrhage, unspecified; E87.1 Hypo-osmolality and hyponatremia; D63.1 Anemia in chronic kidney disease; I12.9 Hypertensive chronic kidney disease with stage 1 through stage 4 chronic kidney disease, or unspecified chronic kidney disease; F10.10 Alcohol abuse, uncomplicated; E87.5 Hyperkalemia; E87.70 Fluid overload, unspecified; E88.09 Other disorders of plasma-protein metabolism, not elsewhere classified; E11.22 Type 2 diabetes mellitus with diabetic chronic kidney disease; E87.6 Hypokalemia; Z87.891 Personal history of nicotine dependence; E66.9 Obesity, unspecified; Z68.39 Body mass index [BMI] 39.0-39.9, adult
CPT/HCPCS: 31500; 36415; 36416; 36430; 36600; 51702; 70450; 71045; 71275; 74174; 76770; 80048; 80053; 80076; 80202; 80306; 81001; 82248; 82306; 82565; 82570; 82805; 83605; 83690; 83735; 83880; 83970; 84100; 84145; 84156; 84478; 84484; 85025; 85610; 85730; 86850; 86900; 86901; 87040; 87070; 87081; 87205; 93005; 93306; 94002; 94003; 94640; 95705; 96365; 96375; B4087; C1751; C1889; J0171; J0360; J0665; J0692; J0696; J1630; J1650; J1940; J2060; J2250; J2272; J2354; J2405; J2470; J2704; J2765; J2919; J3010; J3370; J3411; J3475; J3480; J7030; J7042; J7050; J7070; J7120; J7620; P9016; P9047; P9048; Q9967